=== PATIENT | male | born 1995 | race Caucasian/White ===

== ENCOUNTER 2025-09-13 17:40 | Emergency (ER) | payer OTHER, SELFPAY ==
--- NOTE | ~2025-09-13 | XR_ITS ---
CLINICAL HISTORY: swelling, pain, hx surgery knee 4 view left knee Comparison: None provided Findings: No fractures or dislocations. Mild degenerative changes of the knee. Small mixed lytic and sclerotic area of the distal femur. Soft tissue edema and small joint effusion. No radiopaque foreign body. IMPRESSION: No acute findings. Mixed lytic and sclerotic area of the distal femur could be secondary to previous instrumentation. This document has been electronically signed by: Lalito Fairchild MD on 09/13/2025 19:09:05
[2025-09-13 17:57] VITALS: BP 133/69; PULSE 67; RESP 96; TEMP 36.2; O2SAT 20; BMI 37.8
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
--- OUTSIDE RECORDS SUMMARY | 2025-09-13 20:51 | XMS_ITS | Clinical Summary ---
Author Organization [facility] Address [address] [place] [address] Care Team Providers Care Care Analyst Name Role Phone Unavailable Primary Care Provider Unavailabl e Social History Tobacco Use Types Packs/Day Years Used Date Smoking Tobacco: Never Assessed Sex and Gender Information Value Date Recorded Sex Assigned at Not on file Legal Sex Male 12:16 AM EST Gender Identity Not on file Sexual Orientation Not on file Plan of Treatment Health Maintenance Due Date Last Done Comments DTaP,Tdap,and Td Vaccines (1 - Tdap) 2014 Hepatitis B Vaccines (1 of 3 - 19+ 3-dose series) 2014 HPV Vaccines (1 - 3-dose SCD M series) 2022 Depression Screening 10/13/2024 COVID-19 Vaccine (1 - 2024-2 6 season) 2025 Influenza Vaccine (#1) 2025 RSV Immunization Adult Patie nts (1 - 1-dose 75+ series) 2070 HIB Vaccines Aged Out No longer eligi ble based on patient's age to complete this topic Hepatitis A Vaccines Aged Out No long er eligible based on patient's age to complete this topic IPV Vaccines Aged Out No longer eligi ble based on patient's age to complete this topic MMR Vaccines Aged Out No longer eligi ble based on patient's age to complete this topic Meningococcal ACWY Vaccine Aged Out N o longer eligible based on patient's age to complete this topic Meningococcal B Vaccine Aged Out No l onger eligible based on patient's age to complete this topic Pneumococcal Vaccine: Pediat rics (0 to 5 Years) and At-Risk Patients (6 to 49 Years) Aged Out No longer eligible b ased on patient's age to complete this topic RSV Immunization Patients Un telma 20 months Aged Out No longer eligible b ased on patient's age to complete this topic Varicella Vaccines Aged Out No longer eligible based on patient's age to complete this topic
[2025-09-13 21:35] VITALS: BP 133/69; PULSE 67; RESP 96; TEMP 36.2; O2SAT 20
== END 2025-09-13 21:36 | disposition home or self-care (01) ==
PROVIDERS: Emergency Provider Emergency Medicine
DX: M25.462 Effusion, left knee (principal); M17.12 Unilateral primary osteoarthritis, left knee; R60.0 Localized edema
CPT/HCPCS: 73564; 96372; 99283; 99284; J1885

== ENCOUNTER → 2025-09-13 18:00 | Outpatient (BNV) | payer SELFPAY | PROVIDERS: Visit Provider Nuclear Medicine | DX: M25.562 Pain in left knee (principal); R22.42 Localized swelling, mass and lump, left lower limb | CPT/HCPCS: 73564 ==